=== PATIENT | female | born 1970 | race Two or more races ===

== ENCOUNTER 2025-01-04 07:25 | Day surgery (SDC) | payer MEDICAID, SELFPAY ==
[2025-01-03 07:09] VITALS: BMI 34.1
[2025-01-03 07:53] LABS: Basophils % (Auto) 0 % (0-2.5); Eosinophils # (Auto) 0.1 Thou/mm3 (0.0-0.5); Eosinophils % (Auto) 1 % (0-10); Hematocrit 39.5 % (36.0-46.0); Hemoglobin 13.2 g/dL (12.0-16.0); Immature Granulocytes % (Auto) 1 % (0-0); Immature Granulocytes Auto 0.11 Thou/mm3 (0.00-0.00); Lymphocytes # (Auto) 3.1 Thou/mm3 (1.0-4.8); Lymphocytes % (Auto) 35 % (10-50); Mean Corpuscular HGB Conc 33.4 g/dl (31.0-37.0); Mean Corpuscular Hemoglobin 30.8 pg (25.0-35.0); Mean Corpuscular Volume 92 fL (80-100); Monocytes # (Auto) 0.5 Thou/mm3 (0.0-0.8); Monocytes % (Auto) 6 % (0-12); Neutrophils % (Auto) 57 % (37-80); Nucleated Red Blood Cell % 0 /100 WBC (0); Platelet Count 307 Thou/mm3 (140-440); RDW Standard Deviation 41.6 fL (36.4-46.3); Red Blood Count 4.29 Miln/mm3 (4.00-5.20); White Blood Count 8.8 Thou/mm3 (3.6-11.0)
[2025-01-03 08:14] LABS: Alanine Aminotransferase 23 U/L (10-49); Albumin, Serum 4.3 gm/dL (3.5-5.0); Albumin/Globulin Ratio 1.9 (1.2-2.2); Alkaline Phosphatase 74 U/L (46-116); Anion Gap 7 (7-16); Aspartate Amino Transferase 15 U/L (0-34); BUN/Creatinine Ratio 13 Ratio (12-20); Bilirubin,Total 0.4 mg/dL (0.3-1.2); Blood Urea Nitrogen 9 mg/dL (9-23); Calcium 9.5 mg/dL (8.3-10.6); Calcium (Corrected) 9.5 mg/dL (8.5-10.1); Carbon Dioxide 30.1 mMol/L (20.0-31.0); Chloride 106 mMol/L (98-107); Creatinine (Component) 0.7 mg/dL (0.6-1.3); Globulin 2.3 gm/dL (2.3-3.5); Glucose 91 mg/dL (74-106); Osmolality,Calculated 283 (275-295); Potassium 4.2 mMol/L (3.4-5.1); Sodium 143 mMol/L (136-145); Total Protein 6.6 gm/dL (5.7-8.2); eGFR > 60 See Note
[2025-01-03 08:30] LABS: Partial Thromboplastin Time 25.8 Seconds (22.0-36.0); Prothrombin Time 10.7 Seconds (9.0-12.2)
[2025-01-04] VITALS (9 sets, daily range): BP systolic 114–138; BP diastolic 60–92; PULSE 70–92; RESP 15–28; TEMP 36.2–36.4; O2SAT 95–99; BMI 34.0
--- NOTE | 2025-01-04 08:00 | SUR.PREOP ---
Patient expressed gratitude for prayer before their procedure.
[2025-01-04] MEDS: RINGERS LACTATED 1000 ML 1,000 ML 20 ML IV (08:04)
--- NOTE | 2025-01-04 10:53 | SUR.PHASEI ---
1053: received from OR via [employer]. received report from TANNER Osorio and DR. Patton. pt alert and oriented. no s/s of pain or discomfort. no s/s of resp. distress or discomfort. dressing to lower abdomen clean, dry and intact.
[2025-01-04] MEDS: fentaNYL CIT INJ 50 mCg/ML AMP 2ML 25 MCG IVP (11:03)
--- NOTE | 2025-01-04 11:08 | PD.SUROPNT ---
Date of Procedure 01/04/25 Pre Op Diagnosis Incarcerated incisional hernia Post Op Diagnosis Same Procedure Repair of the incarcerated incisional hernia with placement of 1.[address] mesh. Findings Patient was found to have a large palpable mass almost measuring 5 to 6 cm in diameter but upon opening I found out the defect was very small maybe 1.5 cm in diameter there was incarcerated omentum in the hernial sac Procedure Description After the patient was brought to the operating room endotracheal anesthesia given. Abdomen was prepped with ChloraPrep solution and draped in a sterile manner. Timeout is performed. Then made incision for about 6 inches in length over the midportion of the previous surgical incision. I dissected out to the fascia and found out that the patient indeed had incarcerated omentum which was occupying the subcutaneous tissue. I excised this sac by clamping it and suture-ligated with 2-0 chromic. Then I reduced the omentum and defined the edges of the fascia. The defect barely admitted my index finger and probably measured about 1.5 cm in diameter. I palpated the undersurface of the fascia to see if there is any defect. None was found. I placed 1.[address] mesh and opened it easily just below the fascia then attach the Marlex straps to the edges of the fascia using 2-0 Prolene using 2 sutures on each strap. At the end the repair appeared sound. Subcutaneous tissue was closed using 3-0 plain and large needle. The skin was stapled after injecting half percent Marcaine for analgesia. Dressing was applied with Adaptic and 4 x 4 gauze and patient tolerated the procedure. Anesthesia [employer] Implants 1.[address] mesh Pathology / specimen None Estimated Blood Loss 25 Surgeon Jacek Lucia MD Surgical Staff Operation Date: 01/04/25 09:45 Case Staff Anesthesiologist: Alfredo Patton RN First Assistant: Sonal Palencia
[2025-01-04] MEDS: MORPHINE SULF INJ 10 MG/ML VIAL 3 MG IVP (11:17)
--- NOTE | 2025-01-04 11:20 | SUR.PHASEI ---
1120: able to tolerate ice chips without any diffiuclty.
[2025-01-04] MEDS: ACETAMINOPHEN IVPB 1,000 MG/100 ML VIAL 250 MG IV (11:26)
--- NOTE | 2025-01-04 11:45 | SUR.PHASEII ---
pt able to tolerate oral fluids without difficulty swallowing or nausea/vomiting.
--- NOTE | 2025-01-04 12:05 | SUR.PHASEII ---
pt awake and alert, breathing unlabored on room air. v/s stable. pt dressing to abd cdi. pt able to ambualte to wheelchair with steady gait. d/c instructions given with daughter Shazia using supervisor fishing Sarah shin, all questions answered. pt d/c via wheelchair with all belongings.
== END 2025-01-04 12:05 | disposition home or self-care (01) ==
PROVIDERS: Referring Provider Surgery; Visit Provider Surgery
PROC: (CPT 49594; principal; 2025-01-04 09:30)
DX: K43.0 Incisional hernia with obstruction, without gangrene (principal)
CPT/HCPCS: 49594; 36415; 80053; 85025; 85610; 85730; A4217; A4649; C1781; J0131; J1100; J1885; J2250; J2270; J2405; J2704; J3010; J3490; J7120